=== PATIENT | female | born 1960 | race Caucasian/White ===

== ENCOUNTER 2016-12-31 08:19 | Emergency (ER) | payer BC ==
[2016-12-31] MEDS ORDERED: ACETAMINOPHEN 325 MG TAB PO ONE (08:43)
--- NOTE | 2016-12-31 09:13 | EDPHY ---
H & P Time Seen by Provider: 12/31/16 08:42 HPI/ROS: CHIEF COMPLAINT: Fever, cough, back pain HISTORY OF PRESENT ILLNESS: 56-year-old female with a history of depression presents with a 4 day history of fever. Onset of urinary frequency and fever 4 days ago. Associated with low back achiness, a frequent cough and lack of appetite. Decreased oral intake and a mild runny nose. Taking Tylenol with some relief, did not take Tylenol today. She received a flu vaccination 1 week ago. She returned from [facility] 5 days ago. She had a few bug bites, but did not travel in a malaria prone area. REVIEW OF SYSTEMS: Eyes: No visual changes ENT: No sore throat Cardiac: No chest pain Gastrointestinal: No nausea, no vomiting, no abdominal pain Genitourinary: no dysuria Musculoskeletal: knee pain Skin: No rash Neurological: No headache Psychiatric: depression Past Medical/Surgical History: Depression Social History: no recent alcohol just returned from [facility] Smoking Status: Former smoker Physical Exam: General Appearance: Alert, pleasant Eyes: Pupils equal and round, no conjunctival injection ENT, Mouth: Mucous membranes moist Neck: Normal inspection Respiratory: Lungs are clear to auscultation Cardiovascular: Regular rate and rhythm Gastrointestinal: Abdomen is soft and nontender Back: Normal inspection, no CVA tenderness, no midline tenderness, tender over the right lower lumbar area Neurological: A&O, nonfocal, normal gait Skin: Warm and dry, no rash Extremities: Nontender, no pedal edema Psychiatric: Mood and affect normal Constitutional: Initial Vital Signs Temperature (C) 39.5 C H 12/31/16 08:20 Heart Rate 102 H 12/31/16 08:20 Respiratory Rate 20 12/31/16 08:20 Blood Pressure 146/102 H 12/31/16 08:20 O2 Sat (%) 93 12/31/16 08:20 O2 Delivery Mode Room Air Allergies/Adverse Reactions: No Known Allergies Allergy (Verified 03/11/16 09:19) Home Medications: Medication Instructions Recorded Effexor 12/31/16 Medical Decision Making - Diagnostics Imaging Results: Imaging Impressions Chest X-Ray 12/31/16 08:43 Impression: No definite pneumonia. ED Course/Re-evaluation: This patient presents with fever cough, concerning for pneumonia versus influenza. An IV was established and 1 L normal saline given. Chest x-ray reveals no evidence of pneumonia. Positive for influenza A. outside of the treatment window, given 4 days of symptoms. Symptomatic treatment given. She feels much better after fever reduction with Tylenol. Toradol 30 mg IV given for myalgias. Warning signs discussed. Differential Diagnosis: Differential diagnosis includes pyelonephritis, cholecystitis, cellulitis, pneumonia, abscess, meningitis. - Data Points Laboratory Results: Laboratory Results 12/31/16 09:11 12/31/16 08:53 12/31/16 12/31/16 12/31/16 09:15 09:11 09:11 WBC RBC Hgb Hct MCV MCH MCHC RDW Plt Count MPV Neut % (Auto) Lymph % (Auto) [place] % (Auto) Eos % (Auto) Baso % (Auto) Nucleat RBC Rel Count Absolute Neuts (auto) Absolute Lymphs (auto) Absolute Monos (auto) Absolute Eos (auto) Absolute Basos (auto) Absolute Nucleated RBC Immature Gran % Immature Gran # Sodium Potassium Chloride Carbon Dioxide Anion Gap BUN Creatinine Estimated GFR Glucose Calcium Urine Color YELLOW Urine Appearance CLEAR Urine pH 6.0 (5.0-7.5) Ur Specific [place] 1.025 (1.002-1.030) Urine Protein NEGATIVE (NEGATIVE) Urine Ketones NEGATIVE (NEGATIVE) Urine Blood NEGATIVE (NEGATIVE) Urine Nitrate NEGATIVE (NEGATIVE) Urine Bilirubin NEGATIVE (NEGATIVE) Urine Urobilinogen 0.2 EU EU (0.2-1.0) Ur Leukocyte Esterase NEGATIVE (NEGATIVE) Urine Glucose NEGATIVE (NEGATIVE) Dengue Fever IgG Ab Pending Dengue Fever IgM Ab Pending Dengue Fever Interp Pending Influenza A & B (PCR) POSITIVE FOR FLU A (NEGATIVE) 12/31/16 12/31/16 12/31/16 09:11 08:53 08:53 WBC 5.07 10^3/uL 10^3/uL REJ (3.80-9.50) RBC 5.08 10^6/uL 10^6/uL REJ (4.18-5.33) Hgb 15.7 g/dL g/dL REJ (12.6-16.3) Hct 47.3 % H % REJ (38.0-47.0) MCV 93.1 fL fL REJ (81.5-99.8) MCH 30.9 pg pg REJ (27.9-34.1) MCHC 33.2 g/dL g/dL REJ (32.4-36.7) RDW 13.1 % % REJ (11.5-15.2) Plt Count 159 10^3/uL 10^3/uL REJ (150-400) MPV 10.9 fL fL REJ (8.7-11.7) Neut % (Auto) 63.8 % % REJ (39.3-74.2) Lymph % (Auto) 17.6 % % REJ (15.0-45.0) Woodruff % (Auto) 16.8 % H % REJ (4.5-13.0) Eos % (Auto) 0.6 % % REJ (0.6-7.6) Baso % (Auto) 0.8 % % REJ (0.3-1.7) Nucleat RBC Rel Count 0.0 % % REJ (0.0-0.2) Absolute Neuts (auto) 3.24 10^3/uL 10^3/uL REJ (1.70-6.50) Absolute Lymphs (auto) 0.89 10^3/uL L 10^3/uL REJ (1.00-3.00) Absolute Monos (auto) 0.85 10^3/uL H 10^3/uL REJ (0.30-0.80) Absolute Eos (auto) 0.03 10^3/uL 10^3/uL REJ (0.03-0.40) Absolute Basos (auto) 0.04 10^3/uL 10^3/uL REJ (0.02-0.10) Absolute Nucleated RBC 0.00 10^3/uL 10^3/uL REJ (0-0.01) Immature Gran % 0.4 % % REJ (0.0-1.1) Immature Gran # 0.02 10^3/uL 10^3/uL REJ (0.00-0.10) Sodium 139 mEq/L mEq/L (134-144) Potassium 4.3 mEq/L mEq/L (3.5-5.2) Chloride 103 mEq/L mEq/L (97-110) Carbon Dioxide 23 mEq/l mEq/l (22-31) Anion Gap 13 mEq/L mEq/L (8-16) BUN 9 mg/dL mg/dL (7-23) Creatinine 0.7 mg/dL mg/dL (0.6-1.0) Estimated GFR > 60 Glucose 115 mg/dL H mg/dL (70-100) Calcium 9.0 mg/dL mg/dL (8.5-10.4) Urine Color Urine Appearance Urine pH Ur Specific [place] Urine Protein Urine Ketones Urine Blood Urine Nitrate Urine Bilirubin Urine Urobilinogen Ur Leukocyte Esterase Urine Glucose Dengue Fever IgG Ab Dengue Fever IgM Ab Dengue Fever Interp Influenza A & B (PCR) Medications Given: Discontinued Medications Acetaminophen (Tylenol) 650 mg PO EDNOW ONE Stop: 12/31/16 08:44 Last Admin: 12/31/16 09:15 Dose: 650 mg Sodium Chloride (Ns) 1,000 mls @ 0 mls/hr IV ONCE ONE; Wide Open PRN Reason: Protocol Stop: 12/31/16 09:41 Last Admin: 12/31/16 09:46 Dose: 1,000 mls Ketorolac Tromethamine (Toradol) 30 mg IVP EDNOW ONE Stop: 12/31/16 09:42 Last Admin: 12/31/16 09:45 Dose: 30 mg Departure - Departure Disposition: Home, Routine, Self-Care Clinical Impression: Influenza A Condition: Good Instructions: Influenza (ED) Additional Instructions: Alternate Tylenol and ibuprofen every 3 hours for fever control. Drink plenty of fluids. Return for worsening cough any concerns. Referrals: Sherley Schreiber MD [Primary Care Provider] - 3-4 days, if not improved
[2016-12-31 09:20] LABS: ANION GAP 13 mEq/L (8-16); CARBON DIOXIDE 23 mEq/l (22-31); CHLORIDE 103 mEq/L (97-110); CREATININE 0.7 mg/dL (0.6-1.0); GLOMERULAR FILTRATION RATE > 60; GLUCOSE 115 mg/dL (70-100); POTASSIUM 4.3 mEq/L (3.5-5.2); SODIUM 139 mEq/L (134-144)
[2016-12-31 09:24] LABS: % IMMATURE GRANULYOCYTES 0.4 % (0.0-1.1); ABSOLUTE IMMATURE GRANULOCYTES 0.02 10^3/uL (0.00-0.10); ADD DIFF? NO; ADD MORPH? NO; ADD SCAN? NO; ATYPICAL LYMPHOCYTE FLAG 0 (0-99); FRAGMENT RBC FLAG 0 (0-99); HEMATOCRIT 47.3 % (38.0-47.0); HEMOGLOBIN 15.7 g/dL (12.6-16.3); LEFT SHIFT FLG 0 (0-99); LIPEMIA HEMOLYSIS FLAG 80 (0-99); MEAN CELL HEMOGLOBIN 30.9 pg (27.9-34.1); MEAN CELL HEMOGLOBIN CONCENTR. 33.2 g/dL (32.4-36.7); MEAN CELL VOLUME 93.1 fL (81.5-99.8); MEAN PLATELET VOLUME 10.9 fL (8.7-11.7); PLATELET CLUMPS FLAG 0 (0-99); PLATELET COUNT 159 10^3/uL (150-400); RED BLOOD CELL COUNT 5.08 10^6/uL (4.18-5.33); RED CELL DISTRIBUTION WIDTH 13.1 % (11.5-15.2)
[2016-12-31] MEDS ORDERED: NS 1,000 ML IV ONE (09:40)
[2016-12-31] MEDS ORDERED: KETOROLAC 15 MG/1 ML SDV IVP ONE (09:41)
[2016-12-31 09:46] LABS: COLOR YELLOW; LEUKOCYTE ESTERASE,URINE NEGATIVE (NEGATIVE); NITRITE,URINE NEGATIVE (NEGATIVE)
[2016-12-31 10:30] VITALS: BP 114/83; PULSE 87; RESP 16; TEMP 211.3; O2SAT 94
[2017-01-02 14:11] LABS: DENGUE FEVER AB IGG Negative (Negative); DENGUE FEVER AB IGM Negative (Negative); INTERPRETATION See Comments
== END 2016-12-31 10:59 | disposition home or self-care (01) ==
DX: J10.1 Influenza due to other identified influenza virus with other respiratory manifestations (principal); E86.9 Volume depletion, unspecified; Z87.891 Personal history of nicotine dependence
CPT/HCPCS: 86790-90; 96374; J1885

== ENCOUNTER → 2017-02-05 | Outpatient (CLI) | payer BC, OTHER | LOC: FIMAGING 08:42 | PROVIDERS: ATTEND Orthopaedic Surgery | DX: Z12.31 Encounter for screening mammogram for malignant neoplasm of breast (principal); Z01.818 Encounter for other preprocedural examination; M17.11 Unilateral primary osteoarthritis, right knee | CPT/HCPCS: G0202 ==

== ENCOUNTER 2017-02-23 07:56 | Inpatient (IN) | payer BC ==
--- NOTE | 2017-02-23 06:41 | PDHPUP ---
History & Physical Update H&P update statement: This history and physical update is based on an assessment of the patient which was completed after admission or registration (within 24 hours), but prior to the surgery/procedure.
--- NOTE | 2017-02-23 06:42 | PDIAF ---
- Diagnosis Diagnosis: right knee djd Code Status: Full Code - Medication Management Discharge Medications: Medications to Continue on Transfer Venlafaxine Xr [Effexor Xr 75MG (*)] 150 mg PO DAILY 12/31/16 [Last Taken Unknown] Discharge Medications: Refer to the Discharge Home Medication list for PRN reason. - Orders Services needed: Home Care, Physical Therapy Home Care Face to Face: I certify that this patient was under my care and that I had the required [id number] encounter meeting the encounter requirements on the discharge day. My findings support the fact that the patient is homebound as defined in Home Care Face to Face Continued: CMS Chapter 7 Medicare Benefits Manual 30.1.1 , The condition of the patient is such that there exists a normal inability to leave home and consequently, leaving home would require a considerable and taxing effort. Activity/Weight Bearing Restrictions: wbat. rom as tolerated. daily dressing changes. may shower without bandage. no immersion. haley hose x 2 weeks. seek attn for increasing redness, swelling, drainage, discharge. f/u at two weeks [facility] ortho - Follow Up Care Current Providers and Referrals: Sherley Schreiber MD [Primary Care Provider] -
[~2017-02-23 07:56] MED LIST: NS IV ONE; ROPIVACAINE 0.2% 80 MG, EPINEPHrine 0.2 MG, KETOROLAC TROMETHAMINE 30 MG, morphINE 10 M... IU ONE; TRANEXAMIC ACID IV ONE
[2017-02-23] MEDS ORDERED: ceFAZolin 2 GM/SWFI 2 GM/20 ML SYR IVP ONE (08:09)
[2017-02-23] MEDS ORDERED: FAMOTIDINE 20 MG TAB PO ONE (08:09)
[2017-02-23] MEDS ORDERED: ACETAMINOPHEN 325 MG TAB PO ONE (08:09)
[2017-02-23] MEDS ORDERED: LR 1,000 ML IV ONE (08:10)
[2017-02-23] MEDS ORDERED: LIDOCAINE 1% 2 ML INJ ID PRN (08:10)
[2017-02-23] MEDS ORDERED: THROMBIN (BOVINE) 5,000 UNIT VIAL TP ONE (09:20)
[2017-02-23] MEDS ORDERED: CALCIUM CHLORIDE 1 GM/10 ML INJ ONE (09:21)
[2017-02-23] MEDS ORDERED: MIDAZOLAM 2 MG/2 ML VIAL IVP ONE (09:27)
--- NOTE | 2017-02-23 09:31 | PDANEPAE ---
ANE History of Present Illness r knee ostearthritis ANE Past Medical History - Cardiovascular History Hx Hypertension: No Hx Arrhythmias: No Hx Chest Pain: No Hx Coronary Artery / Peripheral Vascular Disease: No Hx CHF / Valvular Disease: No Hx Palpitations: No - Pulmonary History Hx COPD: No Hx Asthma/Reactive Airway Disease: No Hx Recent Upper Respiratory Infection: Yes Hx Oxygen in Use at Home: No Hx Sleep Apnea: No Sleep Apnea Screening Result - Last Documented: Positive Pulmonary History Comment: silke and cpap use - Neurologic History Hx Cerebrovascular Accident: No Hx Seizures: No Hx Dementia: No - Endocrine History Hx Diabetes: No Endocrine History Comment: on metformin - Renal History Hx Renal Disorders: No - Liver History Hx Hepatic Disorders: No - Neurological & Psychiatric Hx Hx Neurological and Psychiatric Disorders: Yes Neurological / Psychiatric History Comment: depression, - Cancer History Hx Cancer: No - Congenital Disorder History Hx Congenital Disorders: No - GI History Hx Gastrointestinal Disorders: Yes Gastrointestinal History Comment: gastric sleeve - Other Health History Other Health History: none - Chronic Pain History Chronic Pain: No - Surgical History Prior Surgeries: gastric sleeve 2013, gallblader 2010, csection, ovaries removal , breast reduction 2012, ANE Review of Systems Review of Systems: - Exercise capacity METS (RN): 4 METS ANE Patient History - Allergies Allergies/Adverse Reactions: No Known Allergies Allergy (Verified 03/11/16 09:19) - Home Medications Home Medications: Venlafaxine Xr [Effexor Xr 75MG (*)] 150 mg PO DAILY 12/31/16 [Last Taken 0730] Pantoprazole Sodium 40 mg PO DAILY 02/23/17 [Last Taken 02/23/17 0730] - NPO status NPO Since - Liquids (Date): 02/22/17 NPO Since - Liquids (Time): 22:30 NPO Since - Solids (Date): 02/22/17 NPO Since - Solids (Time): 20:30 - Smoking Hx Smoking Status: Former smoker - Family Anes Hx Family Hx Anesthesia Complications: none ANE Labs/Vital Signs - Vital Signs Blood Pressure: 148/96 Heart Rate: 85 Respiratory Rate: 14 O2 Sat (%): 94 Height: 175.26 cm Weight: 133.81 kg ANE Physical Exam - Airway Neck exam: FROM Mallampati Score: Class 2 Mouth exam: normal dental/mouth exam - Pulmonary Pulmonary: no respiratory distress - Cardiovascular Cardiovascular: regular rate and rhythym - ASA Status ASA Status: III ANE Anesthesia Plan Anesthesia Plan: MAC, spinal Regional Anesthesia: adductor canal FNB
[2017-02-23] MEDS ORDERED: PROPOFOL/EMULSION 500 MG/50 ML BOTTLE IV ONE ×2 (09:37→11:08)
[2017-02-23] MEDS ORDERED: fentaNYL 100 MCG/2 ML INJ ONE (09:37)
[2017-02-23] MEDS ORDERED: ceFAZolin 1 GM/5 ML SYR ONE ×2 (10:05→11:46)
[2017-02-23] MEDS ORDERED: HYDROmorphONE/DILAUDID 1 MG/ML INJ IVP PRN (11:03)
[2017-02-23] MEDS ORDERED: OXYCODONE/APAP 5/325 TAB PO PRN (11:03)
[2017-02-23] MEDS ORDERED: fentaNYL 100 MCG/2 ML INJ IVP PRN (11:03)
[2017-02-23] MEDS ORDERED: ONDANSETRON 4 MG/2 ML VIAL IVP PRN ×2 (11:03→12:10)
[2017-02-23] MEDS ORDERED: PROMETHAZINE HCL 25 MG/ML INJ IVP PRN ×2 (11:03→12:10)
[2017-02-23] MEDS ORDERED: NALOXONE HCL 0.4 MG/ML INJ IVP PRN (11:03)
[2017-02-23] MEDS ORDERED: ROPIVACAINE HCL 150 MG/30 ML INJ ONE (11:08)
[2017-02-23] MEDS ORDERED: DEXAMETHASONE 4 MG/ML VIAL ONE (11:08)
[2017-02-23] MEDS ORDERED: ONDANSETRON 4 MG/2 ML VIAL ONE ×2 (11:08→12:30)
[2017-02-23] MEDS: ceFAZolin 1 GM/5 ML SYR ONE ×2 (11:48→11:53)
[2017-02-23] MEDS ORDERED: PROPOFOL 200 MG/20 ML VIAL ONE (11:50)
[2017-02-23] MEDS ORDERED: ONDANSETRON DISINTEGRATING 4 MG TAB PO PRN (12:10)
[2017-02-23] MEDS ORDERED: METOCLOPRAMIDE 10 MG/2 ML VIAL IVP PRN (12:10)
[2017-02-23] MEDS ORDERED: MAGNESIUM HYDROXIDE 30 ML UDCUP PO PRN (12:10)
[2017-02-23] MEDS ORDERED: PROMETHAZINE HCL 25 MG SUPPR PR PRN (12:10)
[2017-02-23] MEDS ORDERED: diphenhydrAMINE 25 MG CAP PO PRN (12:10)
[2017-02-23] MEDS ORDERED: LACTULOSE 20 GM/30 ML UDCUP PO PRN (12:10)
[2017-02-23] MEDS ORDERED: TEMAZEPAM 15 MG CAP PO PRN (12:10)
[2017-02-23] MEDS ORDERED: BISACODYL 10 MG SUPP PR PRN (12:10)
[2017-02-23] MEDS ORDERED: DIPHENOXYLATE/ATROPINE LOMOTIL 1 TAB PO PRN (12:10)
[2017-02-23] MEDS ORDERED: LR 1,000 ML IV SCH (12:30)
--- NOTE | 2017-02-23 12:34 | POSTANESTH ---
Post Anesthetic Evaluation Cardiovascular Status: Normal, Stable Respiratory Status: Normal, Stable Level of Consciousness/Mental Status: Can Participate in Eval Pain Control: Adequate, Prn Tx Ordered Nausea/Vomiting Control: Adequate, Prn Tx Ordered Complications Possibly Related to Anesthesia: None Noted
[2017-02-23] MEDS ORDERED: PROMETHAZINE HCL 25 MG/ML INJ ONE (12:39)
[2017-02-23] MEDS: ceFAZolin 2 GM/DEXTROSE 100 ML IV SCH ×2 (14:52→21:33)
[2017-02-23] MEDS: CYCLOBENZAPRINE 10 MG TAB PO PRN (15:02)
[2017-02-23] MEDS: oxyCODONE IR 5 MG TAB PO PRN ×3 (15:04→20:54)
[2017-02-23] MEDS: ACETAMINOPHEN 325 MG TAB PO SCH (15:31)
[2017-02-23] MEDS: TRANEXAMIC ACID 650 MG TAB PO SCH ×2 (16:38→20:56)
[2017-02-23] MEDS: DIAZEPAM 5 MG TAB PO PRN (17:56)
[2017-02-23] MEDS ORDERED: ACETAMINOPHEN 325 MG TAB PO SCH (18:00)
[2017-02-23] MEDS: SENNOSIDES/DOCUSATE SODIUM TAB PO SCH (20:53)
[2017-02-23] MEDS: ASPIRIN 325 MG TAB PO SCH (20:54)
[2017-02-23] MEDS: FAMOTIDINE 20 MG TAB PO SCH (20:54)
[2017-02-24] MEDS: ACETAMINOPHEN 325 MG TAB PO SCH ×3 (00:46→12:36)
[2017-02-24] MEDS: oxyCODONE IR 5 MG TAB PO PRN ×5 (00:47→14:55)
[2017-02-24] MEDS: DIAZEPAM 5 MG TAB PO PRN (00:47)
[2017-02-24] MEDS: TRANEXAMIC ACID 650 MG TAB PO SCH (04:18)
[2017-02-24 05:22] LABS: HEMATOCRIT 40.3 % (38.0-47.0); HEMOGLOBIN 13.7 g/dL (12.6-16.3)
--- NOTE | 2017-02-24 07:16 | PDIAF ---
- Diagnosis Diagnosis: right knee djd Code Status: Full Code - Medication Management Discharge Medications: Medications to Continue on Transfer Venlafaxine Xr [Effexor Xr 75MG (*)] 150 mg PO DAILY 12/31/16 [Last Taken ] Pantoprazole Sodium [Protonix 40mg (*)] 40 mg PO DAILY 02/23/17 [Last Taken ] oxyCODONE IR [Oxycodone Ir (*)] 5 - 10 mg PO Q3HRS PRN #90 tab 02/24/17 [Last Taken Unknown] Discharge Medications: Refer to the Discharge Home Medication list for PRN reason. - Orders Services needed: Home Care, Physical Therapy Home Care Face to Face: I certify that this patient was under my care and that I had the required jano-sf-xail encounter meeting the encounter requirements on the discharge day. My findings support the fact that the patient is homebound as defined in Home Care Face to Face Continued: CMS Chapter 7 Medicare Benefits Manual 30.1.1 , The condition of the patient is such that there exists a normal inability to leave home and consequently, leaving home would require a considerable and taxing effort. Diet Recommendation: no restrictions on diet Diet Texture: Regular Texture Diet Activity/Weight Bearing Restrictions: wbat. rom as tolerated. daily dressing changes. may shower without bandage. no immersion. haley hose x 2 weeks. seek attn for increasing redness, swelling, drainage, discharge. f/u at two weeks [facility] ortho - Follow Up Care Current Providers and Referrals: Sherley Schreiber MD [Primary Care Provider] -
--- NOTE | 2017-02-24 07:49 | GDS ---
[f rep st] DISCHARGE SUMMARY ADMIT DIAGNOSIS: Right knee degenerative joint disease. DISCHARGE DIAGNOSIS: Right knee degenerative joint disease. PROCEDURE: Right total knee arthroplasty, MAKOplasty. HISTORY OF PRESENT ILLNESS: The patient is a 56-year-old woman with end-stage arthritis to her right knee. Clinical and radiographic features are consistent with this. She has failed all attempts at conservative management. I, therefore, recommended total knee replacement. HOSPITAL COURSE: The patient was admitted to the hospital floor after an uncomplicated total knee ar throplasty. She tolerated the procedure well. Overnight, she had no complications. At the time of discharge, she is tolerating an oral diet. Her pain is well controlled on oral medicines. She is vo iding without difficulty. Dressing demonstrated mild serous drainage and the bandage has been change d. She has negative Isiah's bilaterally. X-rays demonstrate anatomic alignment. No fracture or khadijah ency. DISCHARGE MEDICATIONS: Oxycodone 5 mg 1-2 every 4 hours p.r.n. pain, aspirin 325 mg p.o. daily. FOLLOWUP: Follow up in the orthopedic clinic in 2 weeks. Seek attention for increasing redness, swe lling, drainage, discharge. Copy requested to: Primary Care Physician /[id number]/MODL
[2017-02-24] MEDS: FAMOTIDINE 20 MG TAB PO SCH (07:56)
[2017-02-24] MEDS: SENNOSIDES/DOCUSATE SODIUM TAB PO SCH ×2 (07:59→15:03)
[2017-02-24] MEDS: CYCLOBENZAPRINE 10 MG TAB PO PRN ×2 (07:59→14:56)
[2017-02-24] MEDS: ASPIRIN 325 MG TAB PO SCH (08:03)
[2017-02-24] MEDS: POLYETHYLENE GLYCOL 3350 17 GM PKT PO PRN ×2 (08:04→15:03)
[2017-02-24 08:50] VITALS: RESP 16
[2017-02-24] MEDS ORDERED: VENLAFAXINE XR 75 MG CAP PO SCH (09:00)
[2017-02-24 11:37] VITALS: BP 117/64; PULSE 67; TEMP 98.4; O2SAT 96
--- NOTE | 2017-02-24 15:07 | ASMTCMCOM ---
CM Note CM Note Notes: Pt medically stable for d/c with [facility] PT. Orders to be obtained in [facility]. Pt had indicated in pre-call she was interested in [facility]; after speaking w MD and working w PT/OT pt decides she wants to d/c home. Pt will d/c to mothers home at [address] [address], [facility] updated. Date Signed: 02/24/2017 03:06 PM Electronically Signed By:ELBA Ryder
--- NOTE | 2017-02-24 16:20 | ASDISCHSUM ---
Discharge Information Plan Status:Home with Home Health Medically Cleared to Leave: Discharge Date:02/24/2017 03:34 PM CM D/C Disposition:Home Health Service ADT D/C Disposition:Home Health Service Projected Discharge Date:02/24/2017 11:00 AM Transportation at D/C: Discharge Delay Reason: Follow-Up Date:02/24/2017 11:00 AM Discharge Slot: Final Diagnosis: Placement Information Referral Type:*Alf/SNF Referral ID:[id number] Provider Name: Address 1: Phone Number: Address 2: Fax Number: City: Selection Factors: State: Referral Type:*Home Health Care Services Referral ID:[id number] Provider Name:[facility] Address 1:[address] Address 2: City:Home Selection Factors: State:[place] Patient Contact Information Contact Name:PAMELA Relationship:Son Address: Work Phone: City:[place] Alternate Phone: [facility]/Zip Code:[place] Email: Financial Information Financial Class:HMO and PPO Plans Primary Plan Desc: OUT OF STATE PPO Primary Plan Number:[id number] Secondary Plan Desc: Secondary Plan Number: Assessment Information CM Trimmer Machine Operator Assessment CJR Did you go to joint Answers: No (why?) Notes: Patient did not know class? about the Joint Class -- sending online video CM Note CM Note Notes: Milagros is having some anxiety about her upcoming surgery with Dr. Ledezma. I informed her about the Joint Class and the online video, which I think eased her worries. She has a walker and will fill her medications this week. Milagros would like to go to [facility] where her friends' mother is currently at. She has not spoken with Dr. Ledezma about this, but she believes it is the best option for her post-surgery. Date Signed: 02/17/2017 04:04 PM Electronically Signed By:Delma Kimball [facility] CM Progress Note CM Note CM Note Notes: Pt medically stable for d/c with [facility] PT. Orders to be obtained in too.me. Pt had indicated in pre-call she was interested in [facility]; after speaking w and working w PT/OT pt decides she wants to d/c home. Pt will d/c to mothers home at [address] [address], [facility] updated. Date Signed: 02/24/2017 03:06 PM Electronically Signed By:ELBA Ryder Intervention Information
--- NOTE | 2017-02-25 09:35 | GOP ---
[f rep st] OPERATIVE REPORT DATE OF OPERATION: 02/23/2017 SURGEON: Trev Ledezma MD HUMAN FACTORS SPECIALIST: Gio Sharp, CONTINUOUS MINING MACHINE COAL MINER, SAWDUST MACHINE OPERATOR, assembler surgical garment whose medical necessity for the entirety of the case. PREOPERATIVE DIAGNOSIS: Right knee degenerative joint disease. POSTOPERATIVE DIAGNOSIS: Right knee degenerative joint disease. PROCEDURE PERFORMED: Right total knee arthroplasty. FINDINGS: SPECIMENS: The bony cuts. INDICATIONS: The patient is a 56-year-old woman who has end-stage arthritis to the right knee. Clin ical and radiographic features are consistent with this. Given the persistent nature of her symptoms and failure with conservative measures, I recommended operative intervention. I have outlined surgi yuly procedure, risks, benefits, and alternatives. She wished to proceed. The consent was signed and placed in patient's chart. DESCRIPTION OF PROCEDURE: Patient was identified in the preanesthesia area. The right knee clearly demarcated as operative site with indelible marker. She was given 2 g of Ancef intravenously en rout e to the operative suite. In the OR, general endotracheal anesthesia was administered. Attention wa s turned to the right knee, which was sterilely prepped and draped in the usual fashion. Appropriate time-out procedure was carried out. The limb was exsanguinated with Esmarch bandage. Tourniquet in flated to 275 mmHg. Standard anterior midline incision was made. Thick subcutaneous flaps were elev ated followed by medial parapatellar arthrotomy. The knee demonstrated tricompartmental arthritis. Decision was made to proceed with total knee replacement. Percutaneous incision was made over the mi d femur and mid evans, and 2 pins were placed in each area in a bicortical fashion. The femoral and t ibial reference arrays were affixed. The femoral and tibial checkpoints were placed. The bony landm arks were entered in the computer. The knee was balanced with simple soft tissue releases and adjust ments with the MAKOplasty software. Using the robot assistance, the cuts were made across the femur for a size 4 femur and a size 4 tibia, and all bony fragments were withdrawn. The femoral box was th en cut using a size 4 guide. A trial reduction with the size 4 femur revealed appropriate positionin g and alignment. The tibia was then placed with a 9 mm thick polyethylene pinned in the correct orie ntation and central fin cut in standard fashion. This allowed full extension and flexion to 125 degr ees without instability through the flexion-extension arc. The patella was then everted, cut in a fr eehand cutting technique and drill holes made for a size 38 all poly patella. Trial reduction reveal ed central tracking of the patella and stability throughout the flexion-extension arc. The trial com ponents were withdrawn. The bony surface was thoroughly cleansed and dried with pulsatile lavage serjio ution. In a sequential fashion, the tibial femoral and patellar components were cemented over the fi nal 4 x 9 mm polyethylene insert which was impacted and confirmed to be fully seated. The marginal c ement was withdrawn. During this process the knee was instilled with a joint cocktail of ropivacaine , morphine, Toradol, and epinephrine. The medial parapatellar arthrotomy was closed with #1 Ethibond . The deep tissue instilled with a platelet-rich plasma solution. Subcutaneous tissue closed using 0 Quill suture and skin was stapled. The sterile dressing was applied. The patient was awakened, ex tubated, taken to recovery in good, stable condition. TOTAL TOURNIQUET TIME: 65 minutes. COMPLICATIONS: None. IMPLANTS: The [place] triathlon knee PS femoral component size 4, size 4 tibial base plate, a 4 x 9 mm thick X3 tibial bearing insert, size 38 x 11 mm asymmetrical patella. DISPOSITION: To the recovery room and then the floor. /[id number]/MODL
== END 2017-02-24 15:34 | disposition home health service (06) | DRG 470 ==
LOC: F3N 07:56
PROVIDERS: ADMIT Orthopaedic Surgery; ATTEND Orthopaedic Surgery
PROC: 0SRC0J9 Replacement of Right Knee Joint with Synthetic Substitute, Cemented, Open Approach (ICD-10-PCS; principal; 2017-02-23 10:45)
DX: M17.11 Unilateral primary osteoarthritis, right knee (principal); G47.33 Obstructive sleep apnea (adult) (pediatric); Z87.891 Personal history of nicotine dependence
CPT/HCPCS: 97110-GP; 97116-GP; 97162-GP; 97165-GO; 97530-GP; 97535-GO; C1713; J0171; J0690; J1100; J1885; J2250; J2405; J2550; J2704; J2765; J2795; J3010

== ENCOUNTER 2017-03-27 11:29 | Emergency (ER) | payer BC ==
[2017-03-27 11:44] VITALS: RESP 18
[2017-03-27] MEDS ORDERED: DIAZEPAM 5 MG TAB PO ONE (14:08)
[2017-03-27 14:10] VITALS: BP 155/100; PULSE 70; TEMP 98.6; O2SAT 95
--- NOTE | 2017-03-27 14:18 | EDPHY ---
H & P Time Seen by Provider: 03/27/17 12:47 HPI/ROS: CHIEF COMPLAINT: Right leg pain HISTORY OF PRESENT ILLNESS: 56-year-old female presents to the emergency department with what she is describing is muscular spasms in her right calf. She had right total knee replacement on 02/23/2017. She does not feel like she has a DVT. She feels like she has muscle spasms. She denies chest pain or difficulty breathing. Denies any reported trauma. She tried wrapping her leg and warm heating pad last night. She is requesting something for pain. ROS: She denies chest pain, difficulty breathing, specifically denies pleuritic chest pain. Past Medical/Surgical History: Right total knee replacement 02/23/[address] Trev Ledezma., gastric bypass, depression Social History: Smoking Status: Former smoker Physical Exam: On examination there is no obvious calf swelling and examination. She has reproducible pain with palpation to the right posterior aspect of the knee and the right proximal posterior lower leg. No palpable crepitus or other bony abnormality. No palpable lump. She does have a varicose vein noted. Full range of motion of her right upper extremity. Well-healed surgical incision to the anterior aspect of her right knee. Skin is warm and dry. Dorsalis pedis pulse on the dorsal aspect of her right foot. Constitutional: Initial Vital Signs Temperature (C) 36.7 C 03/27/17 11:40 Heart Rate 80 03/27/17 11:40 Respiratory Rate 18 03/27/17 11:40 Blood Pressure 167/109 H 03/27/17 11:40 O2 Sat (%) 94 03/27/17 11:40 O2 Delivery Mode Room Air Allergies/Adverse Reactions: No Known Allergies Allergy (Verified 03/11/16 09:19) Home Medications: Medication Instructions Recorded Venlafaxine Xr [Effexor Xr 75MG 150 mg PO DAILY 12/31/16 (*)] Pantoprazole Sodium [Protonix 40mg 40 mg PO DAILY 02/23/17 (*)] Diazepam [Valium] 5 mg PO TIDPRN PRN #15 tab 03/27/17 Nucynta 03/27/17 MDM/Departure - MDM Imaging Results: Imaging Impressions Extremity Venous Study 03/27/17 13:14 Impression: No evidence of deep vein thrombosis. Findings discussed with MARK CROWDER 03/27/2017 at 1404. Imaging: Discussed imaging studies w/ square dance caller Radiologist Medications Given: Discontinued Medications Diazepam (Valium) 5 mg PO EDNOW ONE Stop: 03/27/17 14:09 Last Admin: 03/27/17 14:18 Dose: Not Given Diazepam (Valium 5 Mg Prepack#4) 1 btl TAKEHOME EDNOW ONE Stop: 03/27/17 14:20 Last Admin: 03/27/17 14:24 Dose: 1 btl ED Course/Re-evaluation: Ultrasound reveals no evidence of DVT. She was given oral Valium per her request. I encouraged close follow-up with her primary care provider as well as orthopedic surgeon. I do not think this patient has pulmonary embolism. I do not think further imaging is necessary. The patient is comfortable being discharged home. She will return if she has any change in symptoms or feels worse in any way. - Depart Disposition: Home, Routine, Self-Care Clinical Impression: Muscle spasms of lower extremity Qualifiers: Laterality: right Qualified Code(s): M62.838 - Other muscle spasm Condition: Good Instructions: Musculoskeletal Pain (ED) Additional Instructions: Valium as needed for muscular spasm. Warm moist compresses as discussed to help relieve spasm. Gentle stretching as discussed. Change or shoes as discussed. Keep scheduled appointment with Dr. Ledezma in April. Return to the emergency department if you developed calf pain or swelling, or if you feel worse in any way. Prescriptions: Diazepam [Valium] 5 mg PO TIDPRN PRN #15 tab PRN Reason: P.r.n. spasms Referrals: Sherley Schreiber MD [Primary Care Provider] - As per Instructions Trev Ledezma MD [Medical Doctor] - 5-7 days, call for appt.
[2017-03-27] MEDS ORDERED: DIAZEPAM 5 MG PREPACK#4 BTL TAKEHOME ONE ×2 (14:19)
== END 2017-03-27 14:26 | disposition home or self-care (01) ==
DX: M62.838 Other muscle spasm (principal); Z87.891 Personal history of nicotine dependence

== ENCOUNTER → 2017-04-08 | Outpatient (CLI) | payer BC | LOC: BMCIMAGING 10:29 | PROVIDERS: ATTEND Physician Assistant | DX: Z47.1 Aftercare following joint replacement surgery (principal); Z96.651 Presence of right artificial knee joint ==

== ENCOUNTER → 2018-03-08 | Outpatient (CLI) | payer BC | LOC: FIMAGING 09:26 | PROVIDERS: ATTEND Internal Medicine | DX: Z12.31 Encounter for screening mammogram for malignant neoplasm of breast (principal); Z80.3 Family history of malignant neoplasm of breast ==

== ENCOUNTER → 2018-04-01 | Outpatient (CLI) | payer BC | LOC: BMCIMAGING 07:52 | PROVIDERS: ATTEND Orthopaedic Surgery | DX: Z47.1 Aftercare following joint replacement surgery (principal); Z96.651 Presence of right artificial knee joint ==